=== PATIENT | female | born 2000 | race African-American/Black ===

== ENCOUNTER 2022-02-22 01:25 | Emergency (ER) | payer SELFPAY ==
--- NOTE | ~2022-02-22 | CT_ITS ---
EXAMINATION: CT abdomen pelvis w con DATE: 02/22/2022 05:22 INDICATION: Abdominal pain TECHNIQUE: Computed tomography (CT) of the abdomen and pelvis was performed with 100 mL Omnipaque-350 intravenous contrast. Automated exposure control and iterative reconstruction technique were employe d. The dose-length product was 1569.68 mGy-cm. COMPARISON: None FINDINGS: Lung bases are clear. Heart size is normal. No pericardial or pleural effusion. Focal hepatic steatos is at the ligamentum teres. Gallbladder, spleen, pancreas, bilateral adrenal glands and kidneys are n ormal. Bladder, uterus and bilateral adnexa are unremarkable. Bowels including the appendix are to l. Trace amount of likely physiologic free fluid in the cul-de-sac. No pathologically enlarged abdomi nal or pelvic lymphadenopathy. Bones are unremarkable. IMPRESSION: 1. No acute intra-abdominal/pelvic process. Reviewed, dictated and finalized at location A.
[2022-02-22 04:31] VITALS: BP 115/73; PULSE 75; RESP 14; O2SAT 99
[2022-02-22 04:34] LABS: Alanine Aminotransferase 19 U/L (6-35); Albumin Level 3.9 g/dL (3.7-5.6); Alkaline Phosphatase 100 U/L (45-116); Anion Gap 12 mmol/L (8-16); Aspartate Amino Transferase 20 U/L (14-36); Basophils Percent Auto 0.4 % (0.2-1.2); Bilirubin,Total 0.4 mg/dL (0.2-1.3); Blood Urea Nitrogen 21 mg/dL (8-21); Carbon Dioxide 21 mmol/L (22-30); Chloride 106 mmol/L (98-107); Eosinophils Absolute Auto 0.1 K/mm3 (0-0.3); Eosinophils Percent Auto 1.4 % (0-4.4); Estimated Glomerular Filt Rate > 60; Glucose 90 mg/dL (65-110); Hematocrit 33.6 % (37.0-47.0); Hemoglobin 10.3 g/dL (12.0-15.0); Immature Granulocyte Absolute 0.01 K/mm3 (0.00-0.031); Immature Granulocyte Percent A 0.1 % (0-0.5); Lipase 46 U/L (23-300); Lymphocytes Absolute Auto 2.55 K/mm3 (0.9-3.2); Mean Corpuscular HGB Conc 30.7 g/dl (32-36); Mean Corpuscular Hemoglobin 24.2 pg (26-34); Mean Corpuscular Volume 78.9 fl (80-100); Mean Platelet Volume 9.7 fl (7.4-10.4); Monocytes Absolute Auto 0.6 K/mm3 (0.1-0.6); Mucus Urine Rare /lpf; Neutrophils Absolute Auto 3.6 K/mm3 (1.3-6.7); Neutrophils Percent Auto 52.1 % (45.5-73.1); Platelet Count Result 417 k/mm3 (150-375); Potassium 3.6 mmol/L (3.4-5.0); Red Blood Count 4.26 M/mm3 (4.2-5.4); Red Cell Distribution Width 15.9 % (11.5-14.5); Sodium 139 mmol/L (134-143); Squamous Epithelial Cell Urine Many /hpf (Few); White Blood Count 6.9 K/mm3 (4.5-10.0)
[2022-02-22 04:36] LABS: Add Urine Microscopic? YES; Appearance Urine Clear (Clear); Bilirubin Urine Negative (Negative); Blood Urine Trace (Negative); Color Urine Yellow (Yellow); Glucose Urine UA Negative (Negative); Ketones Urine Negative (Negative); Leukocyte Esterase Ur 1+ LEU/UL (Negative); Nitrate Urine Negative (Negative); Protein Urine Negative (Negative); Specific Grav Ur 1.025 (1.001-1.035); pH Urine 6.5 (5.0-9.0)
[2022-02-22 04:38] LABS: Pregnancy On Board Control Positive; Urine Pregnancy Test Negative
--- NOTE | 2022-02-22 05:33 | ED.ABDPAIN ---
HPI - Abdominal Pain General Chief Complaint: Abdominal Pain Time Seen by Provider: 02/22/22 04:50 History of Present Illness HPI narrative: Is a 21-year-old female who presents the emergency department with chief complaint of abdominal pain. The patient reports that she been having some discomfort for some time for least 3 weeks. Patient states that he had nausea and vomiting and reports that symptoms or not improved by anything or they worsened by anything patient denies prior abdominal surgery reports that she has been on Depo shots. Related Data Allergies Allergy/AdvReac Type Severity Reaction Status Date / Time No Known Allergies Allergy Verified 02/22/22 05:11 Review of Systems Review of Systems: A 10 system review of systems was completed on the patient and is negative except for what is stated in the HPI. Nursing and ancillary documentation was reviewed. Course Vital Signs Vital signs: Vital Signs Pulse Rate 75 02/22/22 04:31 Respiratory Rate 14 02/22/22 04:31 Blood Pressure 115/73 02/22/22 04:31 Pulse Oximetry 99 02/22/22 04:31 Pulse Rate 95 02/22/22 06:29 Respiratory Rate 18 02/22/22 06:29 Blood Pressure 137/73 02/22/22 06:29 Pulse Oximetry 100 02/22/22 06:29 MDM - Abdominal Pain Lab Data Result diagrams: 02/22/22 02:28 02/22/22 02:28 Labs: Lab Results 02/22/22 02/22/22 02/22/22 Range/Units 02:28 02:28 02:28 WBC 6.9 (4.5-10.0) K/mm3 RBC 4.26 (4.2-5.4) M/mm3 Hgb 10.3 L (12.0-15.0) g/dL Hct 33.6 L (37.0-47.0) % MCV 78.9 L (80-100) fl MCH 24.2 L (26-34) pg MCHC 30.7 L (32-36) g/dl RDW 15.9 H (11.5-14.5) % Plt Count 417 H (150-375) k/mm3 MPV 9.7 (7.4-10.4) fl Immature Gran % (Auto) 0.1 (0-0.5) % Neut % (Auto) 52.1 (45.5-73.1) % Lymph % (Auto) 37.0 (18.3-44.2) % Rowan % (Auto) 9.0 H (2.6-8.5) % Eos % (Auto) 1.4 (0-4.4) % Baso % (Auto) 0.4 (0.2-1.2) % Lymph # (Auto) 2.55 (0.9-3.2) K/mm3 Rowan # (Auto) 0.6 (0.1-0.6) K/mm3 Eos # (Auto) 0.1 (0-0.3) K/mm3 Baso # (Auto) 0.0 (0.0-0.1) K/mm3 Abs Immat Gran (auto) 0.01 (0.00-0.031) K/mm3 Absolute Neuts (auto) 3.6 (1.3-6.7) K/mm3 Absolute Nucleated RBC 0.0 (0.0-0.012) K/mm3 Nucleated RBC % 0.0 (0.0-0.2) % Sodium 139 (134-143) mmol/L Potassium 3.6 (3.4-5.0) mmol/L Chloride 106 (98-107) mmol/L Carbon Dioxide 21 L (22-30) mmol/L Anion Gap 12 (8-16) mmol/L BUN 21 (8-21) mg/dL Creatinine 0.90 (0.7-1.0) mg/dL Estim Creat Clear Calc Not Reportable Estimated GFR > 60 (59 - ) Glucose 90 (65-110) mg/dL Calcium 9.0 (8.9-10.7) mg/dL Total Bilirubin 0.4 (0.2-1.3) mg/dL AST 20 (14-36) U/L ALT 19 (6-35) U/L Alkaline Phosphatase 100 (45-116) U/L Total Protein 7.0 (6.3-8.6) g/dL Albumin 3.9 (3.7-5.6) g/dL Lipase 46 (23-300) U/L Urine Color Yellow (Yellow) Urine Appearance Clear (Clear) Urine pH 6.5 (5.0-9.0) Ur Specific [place] 1.025 (1.001-1.035) Urine Protein Negative (Negative) mg/dL Urine Glucose (UA) Negative (Negative) mg/dL Urine Ketones Negative (Negative) mg/dL Ur Blood (Man) Trace (Negative) Urine Nitrate Negative (Negative) Urine Bilirubin Negative (Negative) Urine Urobilinogen 1.0 (<2.0) mg/dL Leukocyte Esterase Rfl 1+ H (Negative) GINO/UL Urine RBC 3-5 H (0-2) /hpf Urine WBC 7-9 H /hpf Ur Squamous Epith Cells Many H (Few) /hpf Urine Mucus Rare /lpf Urine Test Negative Discharge Plan Discharge Clinical Impression: Acute generalized abdominal pain, UTI (urinary tract infection) Patient Disposition: Home, Self-Care Condition: Stable Instructions: Antibiotic Form, Urinary Tract Infection in Women (ED), Abdominal Pain (ED) Additional Instructions: Please follow-up with y
[2022-02-22 06:29] VITALS: BP 137/73; PULSE 95; RESP 18; O2SAT 100
--- NOTE | 2022-02-22 06:48 | PC.NURSE ---
Removed 20 G IV from RAC. Tolerated well. Removed intact. 2X2 applied and secured with tape. No active bleeding noted. Tolerated well
== END 2022-02-22 06:43 | disposition home or self-care (01) ==
PROVIDERS: Emergency Provider Emergency Medicine
DX: N39.0 Urinary tract infection, site not specified (principal)
CPT/HCPCS: 36415; 74177; 80053; 81001; 81025; 83690; 85025; 87086; 87088; 99284; Q9967